=== PATIENT | male | born 1965 | race Caucasian/White ===

== ENCOUNTER 2016-09-16 06:32 | Day surgery (SDC) | payer BC ==
[~2016-09-16] VITALS: Ht 175.3 cm; Wt 84.0 kg
[~2016-09-16 06:32] MED LIST: AMBIEN5 MG PO; DIOVAN320 MG PO; GLUCOPHAGE1000 MG PO; GLUCOTROL XL10 MG PO; IBUPROFEN200 M1 PO; LO-DOSE ASPIRIN81 M2 PO; MULTIPLE VITAM1 EAC1 PO; NORVASC5 MG PO; NOVOLOG MI100 UNIT/M SC; PRAVACHOL20 MG PO; PRECOSE25 MG PO; PROTONIX40 MG PO; VITAMIN D-32000 UNI2 PO
[2016-09-16 06:53] VITALS: BP 160/88
[2016-09-16 07:48] LABS: POINT-OF-CARE METER ID UU14174212; POINT-OF-CARE USER ID AHSRSCSLC11
[2016-09-16] MEDS ORDERED: PERCOCET 5/31 TABLET PO (09:30)
[2016-09-16 09:45] LABS: POINT-OF-CARE METER ID UU13113675
[2016-09-16 11:03] VITALS: BP 121/73
[2016-09-16 11:50] VITALS: BP 129/78
== END 2016-09-16 12:23 | disposition home or self-care (01) ==
LOC: SDC 06:32
PROVIDERS: Surgery
PROC: 0WUF4JZ Supplement Abdominal Wall with Synthetic Substitute, Percutaneous Endoscopic Approach (ICD-10-PCS; principal; 2016-09-16)
DX: K42.0 Umbilical hernia with obstruction, without gangrene (principal); I10 Essential (primary) hypertension; E78.00 Pure hypercholesterolemia, unspecified; E11.65 Type 2 diabetes mellitus with hyperglycemia; E11.3513 Type 2 diabetes mellitus with proliferative diabetic retinopathy with macular edema, bilateral; Z79.4 Long term (current) use of insulin; Z79.82 Long term (current) use of aspirin; F17.200 Nicotine dependence, unspecified, uncomplicated; Z82.49 Family history of ischemic heart disease and other diseases of the circulatory system; Z83.3 Family history of diabetes mellitus; Z88.8 Allergy status to other drugs, medicaments and biological substances
CPT/HCPCS: 82948; C1781; J0330; J0690; J1170; J2250; J2405; J2710; J2765; J3010